=== PATIENT | female | born 1980 | race Caucasian/White ===

== ENCOUNTER 2024-04-13 13:45 | Outpatient (RCR) | payer OTHER, SELFPAY ==
--- NOTE | 2023-12-31 12:19 | PT.OIE ---
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/23) Past Medical History (Last Updated 02/22/21 @ 21:51 by Keke Gavin) Abnormal Pap smear of cervix (~2010) Chicken pox (~1984) Heavy menstrual period (~2016) Irritable bowel syndrome Ovarian cyst (~2004) Past Surgical History (Last Updated 02/22/21 @ 21:51 by Keke Gavin) Anesthesia History of oral surgery (~1999) Visit Care Team Role Provider Type Kaylene Ko, MSN, diamond wheel edger Provider Non-Staff Primary Care Provider Specialty: Nursing Address: [address] [place] [address], [id number] Email: Shannon Smith MD Attending Provider Non-Staff Referring Provider Specialty: Medical Address: [address] [place] [address], [id number] Email: Physical Therapy Initial Evaluation PT-OP-A Visit Information Start: 12/30/23 08:23 Freq: Status: Active Protocol: Document 12/30/23 14:30 [facility] (Rec: 12/30/23 14:32 [facility] [id number]) Out-Patient Physical Therapy Visit Information Visit Information Visit Type Initial Evaluation Visit Start Time 14:30 Visit Stop Time 15:15 Visit Number 1 Evaluation Information Evaluation Date 12/30/23 PT-OP-B Current Condition Start: 12/30/23 08:23 Freq: Status: Active Protocol: Document 12/30/23 14:30 [facility] (Rec: 12/30/23 08:24 [facility] [id number]) Current Condition History of Current Condition Onset Date 12 months Current Complaints Uterine prolapse, pelvic heaviness premenstrual, difficulty voiding at times History of Current Condition 43 year old female with pelvic floor weakness, prolapse, straining with defecation making symptoms worse. Sharon reports she has had long standing digestive issues since a teenager. She is taking physillium husks tablets with dinner and she is having 1-2 bowel movements a day now. She is working hard to avoid constipation as she realizes that it has contributed to the uterine prolapse. Sharon has hx of 1 childbirth 7 years ago, pre she had a high cervix, post she notes that it was low and using a menstrual cup it was lower. In July she noted she could see her cervix approaching the vaginal entrance as she was straining for a bowel movement. She sometimes has complaints of pelvic pressure and it can vary throughtout her menstrual cycle especially pre menstruation. Hx of urinary frequency and only small amounts of urinary leakage. Fluid intake includes 2 coffees in am and then water and herbal tea throughout the day. 4 8 oz glasses of water per day. THe uterus prolapse also presses on her urethral when she has the menstrual disc in as well making it hard to void. Other past medical history includes neck and jaw pain and thyroid disorder. PT-OP-C Subjective Start: 12/30/23 08:23 Freq: Status: Active Protocol: Document 12/30/23 14:30 [facility] (Rec: 12/31/23 11:45 [facility] [id number]) OP-PT Subjective Patient Comments Patient Comments Sharon notes she began experiencing symptoms of uterine prolapse a few years ago and now notes with bowel movements she will often see her uterus at the vaginal opening Patient Questionnaires Pelvic Pain and Urgency/Frequency Patient Symptom Scale Pelvic Pain Score 7 PT-OP-F Manual Assessment Start: 12/30/23 08:23 Freq: Status: Active Protocol: Document 12/30/23 14:30 [facility] (Rec: 12/31/23 12:19 [facility] [id number]) Manual Assessments Soft Tissue Assessment Soft Tissue Mobility Assessment restrictions in fascial mobility at the transverse colon and descending colon PT-OP-I Pelvic Floor Start: 12/30/23 08:23 Freq: Status: Active Protocol: Document 12/30/23 14:30 [facility] (Rec: 12/30/23 16:24 [facility] [id number]) Pelvic Floor Assessment Urine Pelvic Floor Surgery No Urinary Symptoms Prolapse,Incomplete Emptying Other Urinary Symptoms uterine prolapse and bulging into the vaginal wall with bowel movements, heaviness and pressure at times especially premenstrual, difficulty voiding during menstruation due to increased prolapse, small amounts of urinary urgency is present Leakage Size Small Leakage Cause Urge Bowel Bowel Symptoms Constipation Other Bowel Symptoms long history of consipation and Sharon is working on bowl management Pelvic Clock Pelvic Clock 12-3 Atrophy Pelvic Clock 3-6 Atrophy Pelvic Clock 6-9 Atrophy Pelvic Clock 9-12 Atrophy Prolapse Uterine Prolapse Grade 2 Contraction Ability Voluntary Contraction Weak Voluntary Relaxation Weak Manual Muscle Testing Left 2 Manual Muscle Testing Right 2 Manual Muscle Testing Anterior 2 Manual Muscle Testing Posterior 2 Muscle Endurance (Seconds) 5 Comments Pelvic Floor Comments decreased strength and endurance of the pelvic floor, thinness of the tissue over the rectum with atrophy noted in all olivia of the levator ani PT-OP-Q Treatments Start: 12/30/23 08:23 Freq: Status: Active Protocol: Document 12/30/23 14:30 [facility] (Rec: 12/30/23 16:23 [facility] [id number]) Self-Care/Home Management Treatment Activities Self-Care/Home Management Activities Sharon is educated in ILU Self massage over the colon PT-OP-T Assessment and Plan Start: 12/30/23 08:23 Freq: Status: Active Protocol: Document 12/30/23 14:30 [facility] (Rec: 12/30/23 16:26 [facility] [id number]) Physical Therapy Assessment Rehab Potential Rehabilitation Potential Excellent Evaluation Complexity Number of Personal Factors/Comorbidities 0 Number of Body Systems Impaired 1-2 Clinical Presentation at Evaluation Stable Impairments Impairments Activity Tolerance,Soft Tissue Mobility,Strength,Tone Other Impairments difficulty with fully voiding during menstration urgency with small amounts of leakage uterine prolapse symptoms Goals 3 Impairment uterine prolapse symptoms of heaviness and pressure worse with bowel movements and pre menstruation Halfway Goal (LTG) With strengthening and a bowel program Sharon reports a overall reduction of uterine prolapse symptoms. LTG Duration 12 weeks 2 Impairment Decreased endurance of the pelvic floor Short Term Goal (STG) Sharon is able to sustain a pelvic floor contraction in supine x 10 seconds measured with EMG biofeedback STG Duration 4 weeks Halfway Goal (LTG) Sharon is able to sustain a pelvic floor contraction in standing x 10 seconds for improved support of the pelvic organs measured with EMG biofeedback 1 Impairment Decreased strength of the pelvic floor testing 2/5 MMT for all olivia of the levator ani Short Term Goal (STG) Sharon is educated on pelvic floor strenghtening exercises for Home STG Duration 4 weeks Tube Mill Operator Goal (LTG) Sharon presents with improved strength of the pelvic floor and she tests 3/5 or better with MMT LTG Duration 12 weeks Assessment Summary Assessment Sharon is a 43 year old female who presents to Physical Therapy with primary complaints of uterine prolapse . Sharon reports she has had long standing digestive issues since she was a teenager and has dealt with chronic constipation. Straining with bowel movements has led to a uterine prolapse . She is very aware of this now and is working to manage her bowels so that she does not need to strain. She reports taking psyllium husk capsules daily and this has helped her to be able to have 1-2 bowel movements per day. Her symptoms are worse premenstrual and she will note that she can see her cervix at the vaginal opening. Sharon is worried about further prolapse and she would like to do all she can to strengthen and support her pelvic organs and she seeks PT consult for this. With exam today of the pelvic floor there is atrophy of all loivia of the levator ani and thinning of the tissue over the rectum. Sharon is able to contract all olivia of the levator ani however she is weak and tests 2/5 MMT. She lacks the ability to sustain a pelvic floor contraction greater than 5-6 seconds. With palpation over the abdominal wall and specifically over the colon fascial tightness and restrictions are found in the region of the descending colon and transverse colon. Sharon was educated on self abdominal massage to assist with colon motility as well as instructed in pelvic floor strengthening. She would benefit from EMG biofeedback for pelvic floor endurance and strength training to improve support of the pelvic organs as well as abdominal massage techniques, pelvic decompression exercises and positioning, postural exercises, splinting at the perineum for bowel movements, HEP. Sharon is a good candidate for pelvic floor PT Physical Therapy Plan Frequency and Duration Frequency of Treatment 1x/Week Duration of treatment (weeks) 12 Plan of Care Start Date 12/30/23 Plan of Care End Date 03/23/24 Therapeutic Interventions Therapeutic Interventions Home Exercise Program,Manual Therapy,Neuromuscular Re- education,Patient/Caregiver Education,Self-Care/Home Management,Soft Tissue Mobilization,Therapeutic Exercises Modalities Biofeedback,Electric Stimulation Next Visit Focus/Plan Next Visit Plan Begin EMG biofeedback next visit and also work on inverting the pelvis to take pressure off the pelvic organs
--- NOTE | 2023-12-31 12:19 | PT.OPPOC ---
Physical, Occupational & Speech Therapy At [facility] 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/23) Visit Care Team Role Provider Type Kaylene Ko, MSN, poultry hatchery laborer Provider Non-Staff Primary Care Provider Specialty: Nursing Address: [address] [place] [address], [id number] Email: Shannon Smith MD Attending Provider Non-Staff Referring Provider Specialty: Medical Address: [address] [place], [address] Email: Plan Of Care PT-OP-T Assessment and Plan Start: 12/30/23 08:23 Freq: Status: Active Protocol: Document 12/30/23 14:30 [facility] (Rec: 12/30/23 16:26 [facility] [id number]) Physical Therapy Assessment Rehab Potential Rehabilitation Potential Excellent Evaluation Complexity Number of Personal Factors/Comorbidities 0 Number of Body Systems Impaired 1-2 Clinical Presentation at Evaluation Stable Impairments Impairments Activity Tolerance,Soft Tissue Mobility,Strength,Tone Other Impairments difficulty with fully voiding during menstruation urgency with small amounts of leakage uterine prolapse symptoms Goals 3 Impairment uterine prolapse symptoms of heaviness and pressure worse with bowel movements and pre menstruation End Stapler Goal (LTG) With strengthening and a bowel program Sharon reports a overall reduction of uterine prolapse symptoms. LTG Duration 12 weeks 2 Impairment Decreased endurance of the pelvic floor Short Term Goal (STG) Sharon is able to sustain a pelvic floor contraction in supine x 10 seconds measured with EMG biofeedback STG Duration 4 weeks End Stapler Goal (LTG) Sharon is able to sustain a pelvic floor contraction in standing x 10 seconds for improved support of the pelvic organs measured with EMG biofeedback 1 Impairment Decreased strength of the pelvic floor testing 2/5 MMT for all olivia of the levator ani Short Term Goal (STG) Sharon is educated on pelvic floor strengthening exercises for Home STG Duration 4 weeks End Stapler Goal (LTG) Sharon presents with improved strength of the pelvic floor and she tests 3/5 or better with MMT LTG Duration 12 weeks Assessment Summary Assessment Sharon is a 43 year old female who presents to Physical Therapy with primary complaints of uterine prolapse . Sharon reports she has had long standing digestive issues since she was a teenager and has dealt with chronic constipation. Straining with bowel movements has led to a uterine prolapse . She is very aware of this now and is working to manage her bowels so that she does not need to strain. She reports taking psyllium husk capsules daily and this has helped her to be able to have 1-2 bowel movements per day. Her symptoms are worse premenstrual and she will note that she can see her cervix at the vaginal opening. Sharon is worried about further prolapse and she would like to do all she can to strengthen and support her pelvic organs and she seeks PT consult for this. With exam today of the pelvic floor there is atrophy of all olivia of the levator ani and thinning of the tissue over the rectum. Sharon is able to contract all olivia of the levator ani however she is weak and tests 2/5 MMT. She lacks the ability to sustain a pelvic floor contraction greater than 5-6 seconds. With palpation over the abdominal wall and specifically over the colon fascial tightness and restrictions are found in the region of the descending colon and transverse colon. Sharon was educated on self abdominal massage to assist with colon motility as well as instructed in pelvic floor strengthening. She would benefit from EMG biofeedback for pelvic floor endurance and strength training to improve support of the pelvic organs as well as abdominal massage techniques, pelvic decompression exercises and positioning, postural exercises, splinting at the perineum for bowel movements, HEP. Sharon is a good candidate for pelvic floor PT Physical Therapy Plan Frequency and Duration Frequency of Treatment 1x/Week Duration of treatment (weeks) 12 Plan of Care Start Date 12/30/23 Plan of Care End Date 03/23/24 Therapeutic Interventions Therapeutic Interventions Home Exercise Program,Manual Therapy,Neuromuscular Re- education,Patient/Caregiver Education,Self-Care/Home Management,Soft Tissue Mobilization,Therapeutic Exercises Modalities Biofeedback,Electric Stimulation Next Visit Focus/Plan Next Visit Plan Begin EMG biofeedback next visit and also work on inverting the pelvis to take pressure off the pelvic organs Plan of Care Dates Plan of Care Start Date 12/30/23 Plan of Care End Date 03/23/24 Electronically Signed by: Sveta Ashton, PT 12/31/23 [id number] If you are in agreement with this Plan of Care, please return a signed and dated copy. I have reviewed this Plan of Care and certify that the skilled therapy services above are required to meet the patient?s needs. Physician Signature Date Printed Name and Credentials Clinical Instructor Signature Printed Name and Credentials
--- NOTE | 2024-01-13 16:56 | PT.OTN ---
Current Diagnoses Constipation, unspecified (01/13/24) Uterovaginal prolapse, unspecified (01/13/24) Pelvic muscle wasting (01/13/24) Physical Therapy Treatment Note PT-OP-A Visit Information Start: 12/30/23 08:23 Freq: Status: Active Protocol: Document 01/13/24 14:35 [facility] (Rec: 01/13/24 15:20 [facility] [id number]) Out-Patient Physical Therapy Visit Information Visit Information Visit Type Treatment Note Visit Start Time 14:35 Visit Stop Time 15:15 Visit Number 2 PT-OP-B Current Condition Start: 12/30/23 08:23 Freq: Status: Active Protocol: Document 12/30/23 14:30 [facility] (Rec: 12/30/23 08:24 [facility] [id number]) Current Condition History of Current Condition Onset Date 12 months Current Complaints Uterine prolapse, pelvic heaviness premenstrual, difficulty voiding at times History of Current Condition 43 year old female with pelvic floor weakness, prolapse, straining with defecation making symptoms worse. Sharon reports she has had long standing digestive issues since a teenager. She is taking physillium husks tablets with dinner and she is having 1-2 bowel movements a day now. She is working hard to avoid constipation as she realizes that it has contributed to the uterine prolapse. Sharon has hx of 1 childbirth 7 years ago, pre she had a high cervix, post she notes that it was low and using a menstrual cup it was lower. In July she noted she could see her cervix approaching the vaginal entrance as she was straining for a bowel movement. She sometimes has complaints of pelvic pressure and it can vary throughtout her menstrual cycle especially pre menstruation. Hx of urinary frequency and only small amounts of urinary leakage. Fluid intake includes 2 coffees in am and then water and herbal tea throughout the day. 4 8 oz glasses of water per day. THe uterus prolapse also presses on her urethral when she has the menstrual disc in as well making it hard to void. Other past medical history includes neck and jaw pain and thyroid disorder. PT-OP-C Subjective Start: 12/30/23 08:23 Freq: Status: Active Protocol: Document 01/13/24 14:35 [facility] (Rec: 01/13/24 15:20 [facility] [id number]) OP-PT Subjective Patient Comments Patient Comments Sharon reports no changes since last visit, she was been working on pelvic floor contractions PT-OP-F Manual Assessment Start: 12/30/23 08:23 Freq: Status: Active Protocol: Document 12/30/23 14:30 [facility] (Rec: 12/31/23 12:19 [facility] [id number]) Manual Assessments Soft Tissue Assessment Soft Tissue Mobility Assessment restrictions in fascial mobility at the transverse colon and descending colon PT-OP-I Pelvic Floor Start: 12/30/23 08:23 Freq: Status: Active Protocol: Document 12/30/23 14:30 [facility] (Rec: 12/30/23 16:24 [facility] [id number]) Pelvic Floor Assessment Urine Pelvic Floor Surgery No Urinary Symptoms Prolapse,Incomplete Emptying Other Urinary Symptoms uterine prolapse and bulging into the vaginal wall with bowel movements, heaviness and pressure at times especially premenstrual, difficulty voiding during menstruation due to increased prolapse, small amounts of urinary urgency is present Leakage Size Small Leakage Cause Urge Bowel Bowel Symptoms Constipation Other Bowel Symptoms long history of consipation and Sahron is working on bowl management Pelvic Clock Pelvic Clock 12-3 Atrophy Pelvic Clock 3-6 Atrophy Pelvic Clock 6-9 Atrophy Pelvic Clock 9-12 Atrophy Prolapse Uterine Prolapse Grade 2 Contraction Ability Voluntary Contraction Weak Voluntary Relaxation Weak Manual Muscle Testing Left 2 Manual Muscle Testing Right 2 Manual Muscle Testing Anterior 2 Manual Muscle Testing Posterior 2 Muscle Endurance (Seconds) 5 Comments Pelvic Floor Comments decreased strength and endurance of the pelvic floor, thinness of the tissue over the rectum with atrophy noted in all olivia of the levator ani PT-OP-Q Treatments Start: 12/30/23 08:23 Freq: Status: Active Protocol: Document 01/13/24 14:35 [facility] (Rec: 01/13/24 15:20 [facility] [id number]) Therapeutic Exercises Supine Exercises hip roll outs Reps/Minutes 3 x 10 with level 2 theraband ball squeeze with pelvic floor Reps/Minutes x 10 reps pelvic floor isloations Comments 8.6 average Self-Care/Home Management Treatment Education Patient Education Home Exercise Program Other Education pt was educated on vaginal DHEA to help build up the vaginal tissue PT-OP-T Assessment and Plan Start: 12/30/23 08:23 Freq: Status: Active Protocol: Document 01/13/24 14:35 [facility] (Rec: 01/13/24 15:20 [facility] [id number]) Physical Therapy Assessment Goals 3 Impairment uterine prolapse symptoms of heaviness and pressure worse with bowel movements and pre menstruation County Auditor Goal (LTG) With strengthening and a bowel program Sharon reports a overall reduction of uterine prolapse symptoms. LTG Duration 12 weeks 2 Impairment Decreased endurance of the pelvic floor Short Term Goal (STG) Sharon is able to sustain a pelvic floor contraction in supine x 10 seconds measured with EMG biofeedback STG Duration 4 weeks County Auditor Goal (LTG) Sharon is able to sustain a pelvic floor contraction in standing x 10 seconds for improved support of the pelvic organs measured with EMG biofeedback 1 Impairment Decreased strength of the pelvic floor testing 2/5 MMT for all olivia of the levator ani Short Term Goal (STG) Sharon is educated on pelvic floor strenghtening exercises for Home STG Duration 4 weeks Longterm Goal (LTG) Sharon presents with improved strength of the pelvic floor and she tests 3/5 or better with MMT LTG Duration 12 weeks Assessment Summary Assessment EMG biofeedback was initiated today for pelvic floor endurance holds and Sharon was educated in pelvic decompression techniques using a wedge. She tolerated this well Physical Therapy Plan Frequency and Duration Frequency of Treatment 1x/Week Duration of treatment (weeks) 12 Plan of Care Start Date 12/30/23 Plan of Care End Date 03/23/24 Therapeutic Interventions Therapeutic Interventions Home Exercise Program,Manual Therapy,Neuromuscular Re- education,Patient/Caregiver Education,Self-Care/Home Management,Therapeutic Exercises Modalities Biofeedback Next Visit Focus/Plan Next Note Type Treatment Note Next Visit Plan continue with emg biofeedback for pelvic foor endurance, begin TA stabillization in quadruped
--- NOTE | 2024-01-27 16:45 | PT.OTN ---
Current Diagnoses Constipation, unspecified (01/27/24) Uterovaginal prolapse, unspecified (01/27/24) Pelvic muscle wasting (01/27/24) Physical Therapy Treatment Note PT-OP-A Visit Information Start: 12/30/23 08:23 Freq: Status: Active Protocol: Document 01/27/24 14:30 [facility] (Rec: 01/27/24 16:39 [facility] [id number]) Out-Patient Physical Therapy Visit Information Visit Information Visit Type Treatment Note Visit Start Time 14:30 Visit Stop Time 15:15 Visit Number 3 PT-OP-B Current Condition Start: 12/30/23 08:23 Freq: Status: Active Protocol: Document 12/30/23 14:30 [facility] (Rec: 12/30/23 08:24 [facility] [id number]) Current Condition History of Current Condition Onset Date 12 months Current Complaints Uterine prolapse, pelvic heaviness premenstrual, difficulty voiding at times History of Current Condition 43 year old female with pelvic floor weakness, prolapse, straining with defecation making symptoms worse. Sharon reports she has had long standing digestive issues since a teenager. She is taking physillium husks tablets with dinner and she is having 1-2 bowel movements a day now. She is working hard to avoid constipation as she realizes that it has contributed to the uterine prolapse. Sharon has hx of 1 childbirth 7 years ago, pre she had a high cervix, post she notes that it was low and using a menstrual cup it was lower. In July she noted she could see her cervix approaching the vaginal entrance as she was straining for a bowel movement. She sometimes has complaints of pelvic pressure and it can vary throughtout her menstrual cycle especially pre menstruation. Hx of urinary frequency and only small amounts of urinary leakage. Fluid intake includes 2 coffees in am and then water and herbal tea throughout the day. 4 8 oz glasses of water per day. THe uterus prolapse also presses on her urethral when she has the menstrual disc in as well making it hard to void. Other past medical history includes neck and jaw pain and thyroid disorder. PT-OP-C Subjective Start: 12/30/23 08:23 Freq: Status: Active Protocol: Document 01/27/24 14:37 [facility] (Rec: 01/27/24 15:16 [facility] [id number]) OP-PT Subjective Patient Comments Patient Comments pt notes she is not feeling bothered by her symptoms at this point but can tell that there are times she feels the urethra is being compressed when she is attempting to void . PT-OP-F Manual Assessment Start: 12/30/23 08:23 Freq: Status: Active Protocol: Document 12/30/23 14:30 [facility] (Rec: 12/31/23 12:19 [facility] [id number]) Manual Assessments Soft Tissue Assessment Soft Tissue Mobility Assessment restrictions in fascial mobility at the transverse colon and descending colon PT-OP-I Pelvic Floor Start: 12/30/23 08:23 Freq: Status: Active Protocol: Document 12/30/23 14:30 [facility] (Rec: 12/30/23 16:24 [facility] [id number]) Pelvic Floor Assessment Urine Pelvic Floor Surgery No Urinary Symptoms Prolapse,Incomplete Emptying Other Urinary Symptoms uterine prolapse and bulging into the vaginal wall with bowel movements, heaviness and pressure at times especially premenstrual, difficulty voiding during menstruation due to increased prolapse, small amounts of urinary urgency is present Leakage Size Small Leakage Cause Urge Bowel Bowel Symptoms Constipation Other Bowel Symptoms long history of consipation and Sharon is working on bowl management Pelvic Clock Pelvic Clock 12-3 Atrophy Pelvic Clock 3-6 Atrophy Pelvic Clock 6-9 Atrophy Pelvic Clock 9-12 Atrophy Prolapse Uterine Prolapse Grade 2 Contraction Ability Voluntary Contraction Weak Voluntary Relaxation Weak Manual Muscle Testing Left 2 Manual Muscle Testing Right 2 Manual Muscle Testing Anterior 2 Manual Muscle Testing Posterior 2 Muscle Endurance (Seconds) 5 Comments Pelvic Floor Comments decreased strength and endurance of the pelvic floor, thinness of the tissue over the rectum with atrophy noted in all olivia of the levator ani PT-OP-Q Treatments Start: 12/30/23 08:23 Freq: Status: Active Protocol: Document 01/27/24 14:37 [facility] (Rec: 01/27/24 15:16 [facility] [id number]) Therapeutic Exercises Supine Exercises quick contractions Reps/Minutes x 10 reps pelvic floor isloations Comments 7.6 and max 12 Other Exercises TA with sit-stand Reps/Minutes worked on TA with sit-stand and from a squat position to standing quadruped TA bracing Reps/Minutes x 5 reps working on bracing with a exhale Self-Care/Home Management Treatment Education Patient Education Home Exercise Program Other Education worked on the concept of pressure systems and exhaling with pelvic floor contraction versus bearing down, HEP handouts for TA isolation was given to Sharon PT-OP-T Assessment and Plan Start: 12/30/23 08:23 Freq: Status: Active Protocol: Document 01/27/24 14:37 [facility] (Rec: 01/27/24 15:16 [facility] [id number]) Physical Therapy Assessment Goals 3 Impairment uterine prolapse symptoms of heaviness and pressure worse with bowel movements and pre menstruation Corrosion Control Technician Goal (LTG) With strengthening and a bowel program Sharon reports a overall reduction of uterine prolapse symptoms. LTG Duration 12 weeks 2 Impairment Decreased endurance of the pelvic floor Short Term Goal (STG) Sharon is able to sustain a pelvic floor contraction in supine x 10 seconds measured with EMG biofeedback STG Duration 4 weeks Corrosion Control Technician Goal (LTG) Sharon is able to sustain a pelvic floor contraction in standing x 10 seconds for improved support of the pelvic organs measured with EMG biofeedback 1 Impairment Decreased strength of the pelvic floor testing 2/5 MMT for all olivia of the levator ani Short Term Goal (STG) Sharon is educated on pelvic floor strenghtening exercises for Home STG Duration 4 weeks Corrosion Control Technician Goal (LTG) Sharon presents with improved strength of the pelvic floor and she tests 3/5 or better with MMT LTG Duration 12 weeks Assessment Summary Assessment I worked with Sharon today working on TA activation and bracing with her TA for activities such as sit to stand and with lifting. I started quick contractions for her to work on for bracing prior to a cough or sneeze. She would benefit from working towards postural modifications as forward posture can place pressure down onto her pelvic floor as well. Physical Therapy Plan Frequency and Duration Frequency of Treatment 1x/Week Duration of treatment (weeks) 12 Plan of Care Start Date 12/30/23 Plan of Care End Date 03/23/24 Therapeutic Interventions Therapeutic Interventions Home Exercise Program,Manual Therapy,Neuromuscular Re- education,Patient/Caregiver Education,Self-Care/Home Management,Therapeutic Exercises Modalities Biofeedback Next Visit Focus/Plan Next Note Type Treatment Note Next Visit Plan review TA stabilization and begin working on postural modifications and stretches for the anterior abdominal wall
--- NOTE | 2024-02-03 16:28 | PT.OTN ---
Current Diagnoses Constipation, unspecified (02/03/24) Uterovaginal prolapse, unspecified (02/03/24) Pelvic muscle wasting (02/03/24) Physical Therapy Treatment Note PT-OP-A Visit Information Start: 12/30/23 08:23 Freq: Status: Active Protocol: Document 02/03/24 16:23 [facility] (Rec: 02/03/24 16:27 [facility] [id number]) Out-Patient Physical Therapy Visit Information Visit Information Visit Type Treatment Note Visit Start Time 14:35 Visit Stop Time 15:15 Visit Number 4 PT-OP-B Current Condition Start: 12/30/23 08:23 Freq: Status: Active Protocol: Document 12/30/23 14:30 [facility] (Rec: 12/30/23 08:24 [facility] [id number]) Current Condition History of Current Condition Onset Date 12 months Current Complaints Uterine prolapse, pelvic heaviness premenstrual, difficulty voiding at times History of Current Condition 43 year old female with pelvic floor weakness, prolapse, straining with defecation making symptoms worse. Ki reports she has had long standing digestive issues since a teenager. She is taking physillium husks tablets with dinner and she is having 1-2 bowel movements a day now. She is working hard to avoid constipation as she realizes that it has contributed to the uterine prolapse. Ki has hx of 1 childbirth 7 years ago, pre she had a high cervix, post she notes that it was low and using a menstrual cup it was lower. In July she noted she could see her cervix approaching the vaginal entrance as she was straining for a bowel movement. She sometimes has complaints of pelvic pressure and it can vary throughtout her menstrual cycle especially pre menstruation. Hx of urinary frequency and only small amounts of urinary leakage. Fluid intake includes 2 coffees in am and then water and herbal tea throughout the day. 4 8 oz glasses of water per day. THe uterus prolapse also presses on her urethral when she has the menstrual disc in as well making it hard to void. Other past medical history includes neck and jaw pain and thyroid disorder. PT-OP-C Subjective Start: 12/30/23 08:23 Freq: Status: Active Protocol: Document 02/03/24 14:37 [facility] (Rec: 02/03/24 15:18 [facility] [id number]) OP-PT Subjective Patient Comments Patient Comments pt has been bracing with sneezing and with sit-stand She got some DHEA and they just came yesterday PT-OP-F Manual Assessment Start: 12/30/23 08:23 Freq: Status: Active Protocol: Document 12/30/23 14:30 [facility] (Rec: 12/31/23 12:19 [facility] [id number]) Manual Assessments Soft Tissue Assessment Soft Tissue Mobility Assessment restrictions in fascial mobility at the transverse colon and descending colon PT-OP-I Pelvic Floor Start: 12/30/23 08:23 Freq: Status: Active Protocol: Document 12/30/23 14:30 [facility] (Rec: 12/30/23 16:24 [facility] [id number]) Pelvic Floor Assessment Urine Pelvic Floor Surgery No Urinary Symptoms Prolapse,Incomplete Emptying Other Urinary Symptoms uterine prolapse and bulging into the vaginal wall with bowel movements, heaviness and pressure at times especially premenstrual, difficulty voiding during menstruation due to increased prolapse, small amounts of urinary urgency is present Leakage Size Small Leakage Cause Urge Bowel Bowel Symptoms Constipation Other Bowel Symptoms long history of consipation and Ki is working on [employer] Pelvic Clock Pelvic Clock 12-3 Atrophy Pelvic Clock 3-6 Atrophy Pelvic Clock 6-9 Atrophy Pelvic Clock 9-12 Atrophy Prolapse Uterine Prolapse Grade 2 Contraction Ability Voluntary Contraction Weak Voluntary Relaxation Weak Manual Muscle Testing Left 2 Manual Muscle Testing Right 2 Manual Muscle Testing Anterior 2 Manual Muscle Testing Posterior 2 Muscle Endurance (Seconds) 5 Comments Pelvic Floor Comments decreased strength and endurance of the pelvic floor, thinness of the tissue over the rectum with atrophy noted in all olivia of the levator ani PT-OP-Q Treatments Start: 12/30/23 08:23 Freq: Status: Active Protocol: Document 02/03/24 14:37 [facility] (Rec: 02/03/24 15:18 [facility] [id number]) Therapeutic Exercises Supine Exercises supine march with alternating leg lifts Reps/Minutes x 10 reps TA with march Reps/Minutes x 10 reps quick contractions Reps/Minutes x 10 reps pelvic floor isloations Reps/Minutes x 10 reps holding 10 sec and relaxing 10 sec Comments 8.6 and max of 11.8 uv Other Exercises cat cow Reps/Minutes x 10 reps quadruped TA bracing Reps/Minutes x 5 reps working on bracing with a exhale Self-Care/Home Management Treatment Education Patient Education Home Exercise Program Other Education discussion of DHEA for vaginal health PT-OP-T Assessment and Plan Start: 12/30/23 08:23 Freq: Status: Active Protocol: Document 02/03/24 16:23 [facility] (Rec: 02/03/24 16:27 [facility] [id number]) Physical Therapy Assessment Goals 3 Impairment uterine prolapse symptoms of heaviness and pressure worse with bowel movements and pre menstruation Custodial Goal (LTG) With strengthening and a bowel program Ki reports a overall reduction of uterine prolapse symptoms. LTG Duration 12 weeks 2 Impairment Decreased endurance of the pelvic floor Short Term Goal (STG) Ki is able to sustain a pelvic floor contraction in supine x 10 seconds measured with EMG biofeedback STG Duration 4 weeks Dirt Contractor Goal (LTG) Ki is able to sustain a pelvic floor contraction in standing x 10 seconds for improved support of the pelvic organs measured with EMG biofeedback 1 Impairment Decreased strength of the pelvic floor testing 2/5 MMT for all olivia of the levator ani Short Term Goal (STG) Ki is educated on pelvic floor strenghtening exercises for Home STG Duration 4 weeks Custodial Goal (LTG) Ki presents with improved strength of the pelvic floor and she tests 3/5 or better with MMT LTG Duration 12 weeks Assessment Summary Assessment ki is doing better with TA facilitation and I added in lower abdominal progression with marches today and she tolerated well. She has been trying to brace with her pelvic floor prior to coughing or sneezing. She has not been feeling symptoms of prolapse Physical Therapy Plan Frequency and Duration Frequency of Treatment 1x/Week Duration of treatment (weeks) 12 Plan of Care Start Date 12/30/23 Plan of Care End Date 03/23/24 Therapeutic Interventions Therapeutic Interventions Home Exercise Program,Manual Therapy,Neuromuscular Re- education,Patient/Caregiver Education,Self-Care/Home Management,Therapeutic Exercises Modalities Biofeedback Next Visit Focus/Plan Next Note Type Treatment Note Next Visit Plan stretches for the abdominal wall next visit and anterior chest, review new stabilization exercises, 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
--- NOTE | 2024-02-10 17:49 | PT.OTN ---
Current Diagnoses Constipation, unspecified (02/10/24) Uterovaginal prolapse, unspecified (02/10/24) Pelvic muscle wasting (02/10/24) Physical Therapy Treatment Note PT-OP-A Visit Information Start: 12/30/23 08:23 Freq: Status: Active Protocol: Document 02/10/24 14:36 [facility] (Rec: 02/10/24 15:21 [facility] [id number]) Out-Patient Physical Therapy Visit Information Visit Information Visit Type Progress Note Visit Start Time 14:35 Visit Stop Time 15:15 Visit Number 5 PT-OP-B Current Condition Start: 12/30/23 08:23 Freq: Status: Active Protocol: Document 12/30/23 14:30 [facility] (Rec: 12/30/23 08:24 [facility] [id number]) Current Condition History of Current Condition Onset Date 12 months Current Complaints Uterine prolapse, pelvic heaviness premenstrual, difficulty voiding at times History of Current Condition 43 year old female with pelvic floor weakness, prolapse, straining with defecation making symptoms worse. Sharon reports she has had long standing digestive issues since a teenager. She is taking physillium husks tablets with dinner and she is having 1-2 bowel movements a day now. She is working hard to avoid constipation as she realizes that it has contributed to the uterine prolapse. Sharon has hx of 1 childbirth 7 years ago, pre she had a high cervix, post she notes that it was low and using a menstrual cup it was lower. In July she noted she could see her cervix approaching the vaginal entrance as she was straining for a bowel movement. She sometimes has complaints of pelvic pressure and it can vary throughtout her menstrual cycle especially pre menstruation. Hx of urinary frequency and only small amounts of urinary leakage. Fluid intake includes 2 coffees in am and then water and herbal tea throughout the day. 4 8 oz glasses of water per day. THe uterus prolapse also presses on her urethral when she has the menstrual disc in as well making it hard to void. Other past medical history includes neck and jaw pain and thyroid disorder. PT-OP-C Subjective Start: 12/30/23 08:23 Freq: Status: Active Protocol: Document 02/10/24 14:36 [facility] (Rec: 02/10/24 15:21 [facility] [id number]) OP-PT Subjective Patient Comments Patient Comments pt notes she was careful with lifting for her event to brace with her core. She has not been feeling the pelvic pressure Patient Reported Progress Improving PT-OP-F Manual Assessment Start: 12/30/23 08:23 Freq: Status: Active Protocol: Document 12/30/23 14:30 [facility] (Rec: 12/31/23 12:19 [facility] [id number]) Manual Assessments Soft Tissue Assessment Soft Tissue Mobility Assessment restrictions in fascial mobility at the transverse colon and descending colon PT-OP-I Pelvic Floor Start: 12/30/23 08:23 Freq: Status: Active Protocol: Document 12/30/23 14:30 [facility] (Rec: 12/30/23 16:24 [facility] [id number]) Pelvic Floor Assessment Urine Pelvic Floor Surgery No Urinary Symptoms Prolapse,Incomplete Emptying Other Urinary Symptoms uterine prolapse and bulging into the vaginal wall with bowel movements, heaviness and pressure at times especially premenstrual, difficulty voiding during menstruation due to increased prolapse, small amounts of urinary urgency is present Leakage Size Small Leakage Cause Urge Bowel Bowel Symptoms Constipation Other Bowel Symptoms long history of consipation and Sharon is working on [employer] Pelvic Clock Pelvic Clock 12-3 Atrophy Pelvic Clock 3-6 Atrophy Pelvic Clock 6-9 Atrophy Pelvic Clock 9-12 Atrophy Prolapse Uterine Prolapse Grade 2 Contraction Ability Voluntary Contraction Weak Voluntary Relaxation Weak Manual Muscle Testing Left 2 Manual Muscle Testing Right 2 Manual Muscle Testing Anterior 2 Manual Muscle Testing Posterior 2 Muscle Endurance (Seconds) 5 Comments Pelvic Floor Comments decreased strength and endurance of the pelvic floor, thinness of the tissue over the rectum with atrophy noted in all olivia of the levator ani PT-OP-Q Treatments Start: 12/30/23 08:23 Freq: Status: Active Protocol: Document 02/10/24 14:36 [facility] (Rec: 02/10/24 15:21 [facility] [id number]) Therapeutic Exercises Supine Exercises ridge with ball squeeze Reps/Minutes x 15 supine march with alternating leg lifts Reps/Minutes x 10 reps each side TA with march Reps/Minutes x 10 reps quick contractions Reps/Minutes x 10 reps hip roll outs Reps/Minutes 3 x 10 with level 2 theraband ball squeeze with pelvic floor Reps/Minutes x 10 reps pelvic floor isloations Reps/Minutes x 10 reps holding 10 sec and relaxing 10 sec Comments 6.7 uv and 10.4 max Prone Exercises cobra stretch Reps/Minutes 30 seconds Sidelying Exercises clam shells Reps/Minutes 2 x 10 reps PT-OP-T Assessment and Plan Start: 12/30/23 08:23 Freq: Status: Active Protocol: Document 02/10/24 14:36 [facility] (Rec: 02/10/24 15:21 [facility] [id number]) Physical Therapy Assessment Goals 3 Impairment uterine prolapse symptoms of heaviness and pressure worse with bowel movements and pre menstruation Care Home Goal (LTG) With strengthening and a bowel program Sharon reports a overall reduction of uterine prolapse symptoms. pt notes its been fine recently she is noticing this less and less and it hasn't been a problem on a regular basis LTG Duration 12 weeks 2 Impairment Decreased endurance of the pelvic floor Short Term Goal (STG) Sharon is able to sustain a pelvic floor contraction in supine x 10 seconds measured with EMG biofeedback goal met STG Duration 4 weeks Care Home Goal (LTG) Sharon is able to sustain a pelvic floor contraction in standing x 10 seconds for improved support of the pelvic organs measured with EMG biofeedback goal not yet met 1 Impairment Decreased strength of the pelvic floor testing 2/5 MMT for all olivia of the levator ani Short Term Goal (STG) Sharon is educated on pelvic floor strenghtening exercises for Home goal met STG Duration 4 weeks Hand Inspector Goal (LTG) Sharon presents with improved strength of the pelvic floor and she tests 3/5 or better with MMT working towards goal LTG Duration 12 weeks Progress Towards Goals Progress Towards Goals Progressing Toward Goals Assessment Summary Assessment Brandons symptoms of pelvic pressure with bowel movements are decreased and she is not noting the pelvic pressure She is more aware of pressure systems now and is working on bracing with her pelvic floor prior to lifting. She is improving her endurance of pelvic floor holds with EMG biofeedback. Sharon would benefit from continued PT Physical Therapy Plan Frequency and Duration Frequency of Treatment 1x/Week Duration of treatment (weeks) 12 Plan of Care Start Date 02/10/24 Plan of Care End Date 05/04/24 Therapeutic Interventions Therapeutic Interventions Home Exercise Program,Manual Therapy,Neuromuscular Re- education,Patient/Caregiver Education,Self-Care/Home Management,Therapeutic Exercises Modalities Biofeedback Next Visit Focus/Plan Next Note Type Treatment Note Next Visit Plan EMG biofeedback for pelvic floor endurance training, core stabilization exercises, stretches for the pelvic floor and abdominal wall
--- NOTE | 2024-02-10 17:49 | PT.OPPOC ---
Physical, Occupational & Speech Therapy At [facility] Current Diagnoses Constipation, unspecified (02/10/24) Uterovaginal prolapse, unspecified (02/10/24) Pelvic muscle wasting (02/10/24) Visit Care Team Role Provider Type Kaylene Ko, MSN, raw material handler Provider Non-Staff Primary Care Provider Specialty: Nursing Address: [address] [place] [address], [id number] Email: Shannon Smith MD Attending Provider Non-Staff Referring Provider Specialty: Medical Address: [address] [place], [address] Email: Plan Of Care PT-OP-B Current Condition Start: 12/30/23 08:23 Freq: Status: Active Protocol: Document 12/30/23 14:30 [facility] (Rec: 12/30/23 08:24 [facility] [id number]) Current Condition History of Current Condition Onset Date 12 months Current Complaints Uterine prolapse, pelvic heaviness premenstrual, difficulty voiding at times History of Current Condition 43 year old female with pelvic floor weakness, prolapse, straining with defecation making symptoms worse. Sharon reports she has had long standing digestive issues since a teenager. She is taking physillium husks tablets with dinner and she is having 1-2 bowel movements a day now. She is working hard to avoid constipation as she realizes that it has contributed to the uterine prolapse. Sharon has hx of 1 childbirth 7 years ago, pre she had a high cervix, post she notes that it was low and using a menstrual cup it was lower. In July she noted she could see her cervix approaching the vaginal entrance as she was straining for a bowel movement. She sometimes has complaints of pelvic pressure and it can vary throughout her menstrual cycle especially pre menstruation. Hx of urinary frequency and only small amounts of urinary leakage. Fluid intake includes 2 coffees in am and then water and herbal tea throughout the day. 4 8 oz glasses of water per day. THe uterus prolapse also presses on her urethral when she has the menstrual disc in as well making it hard to void. Other past medical history includes neck and jaw pain and thyroid disorder. PT-OP-T Assessment and Plan Start: 12/30/23 08:23 Freq: Status: Active Protocol: Document 02/10/24 14:36 [facility] (Rec: 02/10/24 15:21 [facility] [id number]) Physical Therapy Assessment Goals 3 Impairment uterine prolapse symptoms of heaviness and pressure worse with bowel movements and pre menstruation Manager Stylist Goal (LTG) With strengthening and a bowel program Sharon reports a overall reduction of uterine prolapse symptoms. pt notes its been fine recently she is noticing this less and less and it hasn't been a problem on a regular basis LTG Duration 12 weeks 2 Impairment Decreased endurance of the pelvic floor Short Term Goal (STG) Sharon is able to sustain a pelvic floor contraction in supine x 10 seconds measured with EMG biofeedback goal met STG Duration 4 weeks Snf Goal (LTG) Sharon is able to sustain a pelvic floor contraction in standing x 10 seconds for improved support of the pelvic organs measured with EMG biofeedback goal not yet met 1 Impairment Decreased strength of the pelvic floor testing 2/5 MMT for all olivia of the levator ani Short Term Goal (STG) Sharon is educated on pelvic floor strengthening exercises for Home goal met STG Duration 4 weeks Manager Stylist Goal (LTG) Sharon presents with improved strength of the pelvic floor and she tests 3/5 or better with MMT working towards goal LTG Duration 12 weeks Progress Towards Goals Progress Towards Goals Progressing Toward Goals Assessment Summary Assessment Brandons symptoms of pelvic pressure with bowel movements are decreased and she is not noting the pelvic pressure She is more aware of pressure systems now and is working on bracing with her pelvic floor prior to lifting. She is improving her endurance of pelvic floor holds with EMG biofeedback. Sharon would benefit from continued PT Physical Therapy Plan Frequency and Duration Frequency of Treatment 1x/Week Duration of treatment (weeks) 12 Plan of Care Start Date 02/10/24 Plan of Care End Date 05/04/24 Therapeutic Interventions Therapeutic Interventions Home Exercise Program,Manual Therapy,Neuromuscular Re- education,Patient/Caregiver Education,Self-Care/Home Management,Therapeutic Exercises Modalities Biofeedback Next Visit Focus/Plan Next Note Type Treatment Note Next Visit Plan EMG biofeedback for pelvic floor endurance training, core stabilization exercises, stretches for the pelvic floor and abdominal wall Plan of Care Dates Plan of Care Start Date 02/10/24 Plan of Care End Date 05/04/24 Electronically Signed by: Sveta Ashton, PT 02/10/24 1364 If you are in agreement with this Plan of Care, please return a signed and dated copy. I have reviewed this Plan of Care and certify that the skilled therapy services above are required to meet the patient?s needs. Physician Signature Date Printed Name and Credentials Clinical Instructor Signature Printed Name and Credentials
--- NOTE | 2024-04-13 17:10 | PT.OTN ---
Current Diagnoses Constipation, unspecified (04/13/24) Uterovaginal prolapse, unspecified (04/13/24) Pelvic muscle wasting (04/13/24) Physical Therapy Treatment Note PT-OP-A Visit Information Start: 12/30/23 08:23 Freq: Status: Active Protocol: Document 04/13/24 13:44 [facility] (Rec: 04/13/24 14:33 [facility] [id number]) Out-Patient Physical Therapy Visit Information Visit Information Visit Type Treatment Note Visit Note pt 10 min late Visit Start Time 13:55 Visit Stop Time 14:30 Visit Number 35 PT-OP-B Current Condition Start: 12/30/23 08:23 Freq: Status: Active Protocol: Document 12/30/23 14:30 [facility] (Rec: 12/30/23 08:24 [facility] [id number]) Current Condition History of Current Condition Onset Date 12 months Current Complaints Uterine prolapse, pelvic heaviness premenstrual, difficulty voiding at times History of Current Condition 43 year old female with pelvic floor weakness, prolapse, straining with defecation making symptoms worse. Sharon reports she has had long standing digestive issues since a teenager. She is taking physillium husks tablets with dinner and she is having 1-2 bowel movements a day now. She is working hard to avoid constipation as she realizes that it has contributed to the uterine prolapse. Sharon has hx of 1 childbirth 7 years ago, pre she had a high cervix, post she notes that it was low and using a menstrual cup it was lower. In July she noted she could see her cervix approaching the vaginal entrance as she was straining for a bowel movement. She sometimes has complaints of pelvic pressure and it can vary throughtout her menstrual cycle especially pre menstruation. Hx of urinary frequency and only small amounts of urinary leakage. Fluid intake includes 2 coffees in am and then water and herbal tea throughout the day. 4 8 oz glasses of water per day. THe uterus prolapse also presses on her urethral when she has the menstrual disc in as well making it hard to void. Other past medical history includes neck and jaw pain and thyroid disorder. PT-OP-C Subjective Start: 12/30/23 08:23 Freq: Status: Active Protocol: Document 04/13/24 13:44 [facility] (Rec: 04/13/24 14:33 [facility] [id number]) OP-PT Subjective Patient Comments Patient Comments pt notes the pelvic pressure has not been bothering her. She has been working with the [facility] vaginally. Sharon notes she is independent with her HEP at this time and feels ready to discharge Patient Reported Progress Improving PT-OP-F Manual Assessment Start: 12/30/23 08:23 Freq: Status: Active Protocol: Document 12/30/23 14:30 [facility] (Rec: 12/31/23 12:19 [facility] [id number]) Manual Assessments Soft Tissue Assessment Soft Tissue Mobility Assessment restrictions in fascial mobility at the transverse colon and descending colon PT-OP-I Pelvic Floor Start: 12/30/23 08:23 Freq: Status: Active Protocol: Document 12/30/23 14:30 [facility] (Rec: 12/30/23 16:24 [facility] [id number]) Pelvic Floor Assessment Urine Pelvic Floor Surgery No Urinary Symptoms Prolapse,Incomplete Emptying Other Urinary Symptoms uterine prolapse and bulging into the vaginal wall with bowel movements, heaviness and pressure at times especially premenstrual, difficulty voiding during menstruation due to increased prolapse, small amounts of urinary urgency is present Leakage Size Small Leakage Cause Urge Bowel Bowel Symptoms Constipation Other Bowel Symptoms long history of consipation and Sharon is working on [employer] management Pelvic Clock Pelvic Clock 12-3 Atrophy Pelvic Clock 3-6 Atrophy Pelvic Clock 6-9 Atrophy Pelvic Clock 9-12 Atrophy Prolapse Uterine Prolapse Grade 2 Contraction Ability Voluntary Contraction Weak Voluntary Relaxation Weak Manual Muscle Testing Left 2 Manual Muscle Testing Right 2 Manual Muscle Testing Anterior 2 Manual Muscle Testing Posterior 2 Muscle Endurance (Seconds) 5 Comments Pelvic Floor Comments decreased strength and endurance of the pelvic floor, thinness of the tissue over the rectum with atrophy noted in all olivia of the levator ani PT-OP-Q Treatments Start: 12/30/23 08:23 Freq: Status: Active Protocol: Document 04/13/24 13:44 [facility] (Rec: 04/13/24 14:33 [facility] [id number]) Therapeutic Exercises Supine Exercises ridge with ball squeeze Reps/Minutes x 15 supine march with alternating leg lifts Reps/Minutes x 10 reps each side TA with march Reps/Minutes x 10 reps quick contractions Reps/Minutes x 10 reps ball squeeze with pelvic floor Reps/Minutes x 10 reps pelvic floor isloations Reps/Minutes x 10 reps holding 10 sec and relaxing 10 sec Comments 9.9 and 14.7 Sidelying Exercises clam shells Reps/Minutes 2 x 10 reps PT-OP-T Assessment and Plan Start: 12/30/23 08:23 Freq: Status: Active Protocol: Document 04/13/24 13:44 [facility] (Rec: 04/13/24 14:33 [facility] [id number]) Physical Therapy Assessment Goals 3 Impairment uterine prolapse symptoms of heaviness and pressure worse with bowel movements and pre menstruation Building Services Engineer Goal (LTG) With strengthening and a bowel program Sharon reports a overall reduction of uterine prolapse symptoms. goal met LTG Duration 12 weeks 2 Impairment Decreased endurance of the pelvic floor Short Term Goal (STG) Sharon is able to sustain a pelvic floor contraction in supine x 10 seconds measured with EMG biofeedback goal met STG Duration 4 weeks Building Services Engineer Goal (LTG) Sharon is able to sustain a pelvic floor contraction in standing x 10 seconds for improved support of the pelvic organs measured with EMG biofeedback goal not yet met 1 Impairment Decreased strength of the pelvic floor testing 2/5 MMT for all olivia of the levator ani Short Term Goal (STG) Sharon is educated on pelvic floor strenghtening exercises for Home goal met STG Duration 4 weeks Building Services Engineer Goal (LTG) Sharon presents with improved strength of the pelvic floor and she tests 3/5 or better with MMT working towards goal LTG Duration 12 weeks Assessment Summary Assessment Overall Sharon has made good progress and is showing improved strength and endurance of her pelvic floor. Her pelvic pressure has been reduced and she is I with her HEP. She will be discharged Physical Therapy Plan Discharge Physical Therapy Discharge Reasons Goals Met
== END 2024-04-15 13:56 | disposition home or self-care (01) ==
LOC: PHYS 13:45
PROVIDERS: Family Provider Registered Nurse; PCP Registered Nurse; Referring Provider Obstetrics & Gynecology; Visit Provider Obstetrics & Gynecology
DX: N81.4 Uterovaginal prolapse, unspecified (principal); N81.84 Pelvic muscle wasting; K59.00 Constipation, unspecified
CPT/HCPCS: 97110; 97161; 97535